=== PATIENT | male | born 1945 | race Caucasian/White ===

== ENCOUNTER → 2016-05-19 | Outpatient (CLI) | payer MEDICARE, OTHER ==
[~2016-05-19] MED LIST: AUGMENTIN 875-1 EACH PO; CENTRUM SILVER1 EAC2 PO; COREG 12.5MG12.5 MG PO; CRESTOR40 MG PO; HYDROCHLOROTHIA25 MG PO; IBUPROFEN800 MG PO; MOBIC15 MG PO; NASACORT16.9 ML; NITROSTAT0.4 MG SL; NORCO 7.5-3251 EACH PO; NORVASC 5 MG TAB5 MG PO; PLAVIX 75 MG TA75 MG PO; PROZAC40 MG PO; RANITIDINE HCL150 M1 PO; VITAMIN C 500500 MG PO
[2016-05-19 15:59] LABS: HEMOGLOBIN 13.2 gm/dl (14.0-17.5); RED BLOOD COUNT 4.28 M/UL (4.20-5.50); WHITE BLOOD COUNT 5.1 K/UL (4.5-11.0)
== END ==
LOC: LAB 15:37
PROVIDERS: Nurse Practitioner
DX: R23.8 Other skin changes (principal); Z79.01 Long term (current) use of anticoagulants
CPT/HCPCS: 85025; 85610

== ENCOUNTER → 2016-06-17 | Day surgery (SDC) | payer MEDICARE, OTHER ==
[~2016-06-17] VITALS: Ht 182.9 cm; Wt 111.1 kg
== END | disposition home or self-care (01) ==
LOC: OR 08:14
PROVIDERS: Internal Medicine Gastroenterology
PROC: 0DBH8ZX Excision of Cecum, Via Natural or Artificial Opening Endoscopic, Diagnostic (ICD-10-PCS; 2016-06-17)
PROC: 0DBP8ZZ Excision of Rectum, Via Natural or Artificial Opening Endoscopic (ICD-10-PCS; 2016-06-17)
PROC: 0DBL8ZZ Excision of Transverse Colon, Via Natural or Artificial Opening Endoscopic (ICD-10-PCS; principal; 2016-06-17 14:30)
DX: D12.0 Benign neoplasm of cecum (principal); K63.5 Polyp of colon; K62.1 Rectal polyp; K64.1 Second degree hemorrhoids; I10 Essential (primary) hypertension; R53.82 Chronic fatigue, unspecified; E11.9 Type 2 diabetes mellitus without complications; M19.90 Unspecified osteoarthritis, unspecified site; I25.10 Atherosclerotic heart disease of native coronary artery without angina pectoris; E66.9 Obesity, unspecified; Z87.19 Personal history of other diseases of the digestive system; Z88.8 Allergy status to other drugs, medicaments and biological substances; Z79.899 Other long term (current) drug therapy; Z90.49 Acquired absence of other specified parts of digestive tract; Z90.89 Acquired absence of other organs; Z86.010 Personal history of colon polyps
CPT/HCPCS: 82962; J7030

== ENCOUNTER → 2020-04-21 | Outpatient (CLI) | payer MEDICARE, OTHER ==
[~2020-04-21] MED LIST changes: +ALBUTEROL2.5 MG/3 M INH; +ALL DAY ALLERGY10 M2 PO; +AMIODARONE HCL200 MG PO; +AZITHROMYCIN250 MG PO; +BACTRIM 400-801 EACH PO; +BIOTIN1 MG PO; +BRILINTA 90 MG90 MG PO; +BRILINTA90 MG PO; +BUTALB-ACETAMI1 EACH PO; +CARVEDILOL12.5 MG PO; +CATAPRES 0.1MG0.1 MG PO; +CEFUROXIME500 MG PO; +CLONAZEPAM1 MG PO; +COREG25 MG PO; +COZAAR100 MG PO; +CYCLOBENZAPRINE10 MG PO; +DITROPAN XL10 MG PO; +DOXYCYCLINE HY100 M2 PO; +ECOTRIN81 MG PO; +ELIQUIS 5 MG TAB5 MG PO; +FINASTERIDE5 MG PO; +HYDRALAZINE HC100 MG PO; +IBU800 MG PO; +IMDUR ER TAB 3030 MG PO; +ISOSORBIDE MONO60 MG PO; +LEVOTHYROXINE25 MCG PO; +LOPRESSOR 50 MG50 MG PO; +LOSARTAN POTAS100 MG PO; +MEDROL DOSEPAK 24 MG PO; +MELATONIN3 MG PO; +MELOXICAM15 MG PO; +OMNICEF 300 MG300 MG PO; +PROTONIX 40 MG40 M1 PO; +TAMSULOSIN HCL0.4 MG PO; +TESSALON PERLE100 MG PO; +VENTOLIN HFA 66.7 GM INH; +ZETIA 10 MG TAB10 MG PO
== END ==
LOC: EXRD 11:30
DX: N50.811 Right testicular pain (principal); R93.813 Abnormal radiologic findings on diagnostic imaging of testicles, bilateral
CPT/HCPCS: 76870

== ENCOUNTER 2020-06-13 11:14 | Emergency (ER) | payer MEDICARE, OTHER ==
[~2020-06-13 11:14] MED LIST changes: -AMIODARONE HCL200 MG PO; -BACTRIM 400-801 EACH PO; -CARVEDILOL12.5 MG PO; -CEFUROXIME500 MG PO; -ELIQUIS 5 MG TAB5 MG PO; -FINASTERIDE5 MG PO; -IBU800 MG PO; -ISOSORBIDE MONO60 MG PO; -LEVOTHYROXINE25 MCG PO; -LOPRESSOR 50 MG50 MG PO; -PROTONIX 40 MG40 M1 PO; -TAMSULOSIN HCL0.4 MG PO
[2020-06-13 11:41] LABS: HEMOGLOBIN 11.6 gm/dl (14.0-17.5); RED BLOOD COUNT 3.88 M/UL (4.20-5.50); WHITE BLOOD COUNT 8.5 K/UL (4.5-11.0)
[2020-06-13 12:03] LABS: BUN/CREATININE RATIO 18 (0-10)
== END 2020-06-13 20:13 | disposition home or self-care (01) ==
LOC: ER1 11:14
PROVIDERS: Family Medicine; Physician Assistant
DX: R07.9 Chest pain, unspecified (principal); M54.2 Cervicalgia; M25.512 Pain in left shoulder
CPT/HCPCS: 71045; 80048; 80053; 82550; 82553; 82565; 83874; 84484; 85025; 85610; 93005; 96374; 96376; 99284; J2270; J7030; Q9967

== ENCOUNTER → 2020-06-24 | Outpatient (CLI) | payer MEDICARE, OTHER ==
[~2020-06-24] MED LIST changes: +AMIODARONE HCL200 MG PO; +BACTRIM 400-801 EACH PO; +CARVEDILOL12.5 MG PO; +CEFUROXIME500 MG PO; +ELIQUIS 5 MG TAB5 MG PO; +FINASTERIDE5 MG PO; +IBU800 MG PO; +ISOSORBIDE MONO60 MG PO; +LEVOTHYROXINE25 MCG PO; +LOPRESSOR 50 MG50 MG PO; +PROTONIX 40 MG40 M1 PO; +TAMSULOSIN HCL0.4 MG PO
== END ==
LOC: RAD 14:59
DX: M54.2 Cervicalgia (principal); M47.812 Spondylosis without myelopathy or radiculopathy, cervical region
CPT/HCPCS: 72040

== ENCOUNTER 2020-07-17 17:20 | Inpatient (IN) | payer MEDICARE, OTHER ==
[~2020-07-17] VITALS: Ht 182.9 cm; Wt 113.7 kg
[~2020-07-17 17:20] MED LIST changes: -AMIODARONE HCL200 MG PO; -BACTRIM 400-801 EACH PO; -CARVEDILOL12.5 MG PO; -CEFUROXIME500 MG PO; -ELIQUIS 5 MG TAB5 MG PO; -FINASTERIDE5 MG PO; -IBU800 MG PO; -ISOSORBIDE MONO60 MG PO; -LEVOTHYROXINE25 MCG PO; -LOPRESSOR 50 MG50 MG PO; -PROTONIX 40 MG40 M1 PO; -TAMSULOSIN HCL0.4 MG PO
[2020-07-17 19:07] LABS: HEMOGLOBIN 9.1 gm/dl (14.0-17.5); RED BLOOD COUNT 3.06 M/UL (4.20-5.50); WHITE BLOOD COUNT 4.4 K/UL (4.5-11.0)
[2020-07-17 19:27] LABS: BUN/CREATININE RATIO 18 (0-10)
[2020-07-18] MEDS ORDERED: BACTRIM 400-801 EACH PO (00:32)
[2020-07-18] MEDS ORDERED: LEVOTHYROXINE25 MCG PO (00:35)
[2020-07-18 03:34] LABS: HEMOGLOBIN 8.8 gm/dl (14.0-17.5); RED BLOOD COUNT 2.93 M/UL (4.20-5.50); WHITE BLOOD COUNT 4.1 K/UL (4.5-11.0)
[2020-07-19 04:22] LABS: RED BLOOD COUNT 3.04 M/UL (4.20-5.50); WHITE BLOOD COUNT 4.9 K/UL (4.5-11.0)
[2020-07-20 03:45] LABS: BUN/CREATININE RATIO 18 (0-10)
[2020-07-21] MEDS ORDERED: PROTONIX 40 MG40 M1 PO (12:16)
[2020-07-21] MEDS ORDERED: CARVEDILOL12.5 MG PO (12:16)
[2020-07-21] MEDS ORDERED: CEFUROXIME500 MG PO (12:16)
--- NOTE | 2020-07-21 14:12 | NUR ---
STATED THAT AFTER REVIEWING RESULTS OF PATIENT'S LUNG SCAN, HE CAN BE DISCHARGED.
== END 2020-07-21 15:39 | disposition home or self-care (01) | DRG 682 ==
LOC: ER1 17:20 → CDU 21:05 → MED SURG 4 21:05
PROVIDERS: Internal Medicine; Physician Assistant; ADMIT Internal Medicine
PROC: B24BZZ4 Ultrasonography of Heart with Aorta, Transesophageal (ICD-10-PCS; principal; 2020-07-18)
DX: N17.9 Acute kidney failure, unspecified (principal); J18.9 Pneumonia, unspecified organism; E87.1 Hypo-osmolality and hyponatremia; D61.818 Other pancytopenia; I25.10 Atherosclerotic heart disease of native coronary artery without angina pectoris; Z20.822 Contact with and (suspected) exposure to COVID-19; I95.2 Hypotension due to drugs; I12.9 Hypertensive chronic kidney disease with stage 1 through stage 4 chronic kidney disease, or unspecified chronic kidney disease; N18.30 Chronic kidney disease, stage 3 unspecified; D63.1 Anemia in chronic kidney disease; G47.33 Obstructive sleep apnea (adult) (pediatric); E86.0 Dehydration; E78.5 Hyperlipidemia, unspecified; E11.22 Type 2 diabetes mellitus with diabetic chronic kidney disease; I45.10 Unspecified right bundle-branch block; D69.6 Thrombocytopenia, unspecified; T46.5X5A Adverse effect of other antihypertensive drugs, initial encounter; Z95.5 Presence of coronary angioplasty implant and graft; Z79.4 Long term (current) use of insulin; Z86.711 Personal history of pulmonary embolism; Z79.01 Long term (current) use of anticoagulants; Z90.49 Acquired absence of other specified parts of digestive tract; Z88.8 Allergy status to other drugs, medicaments and biological substances; Z88.6 Allergy status to analgesic agent; Z82.49 Family history of ischemic heart disease and other diseases of the circulatory system; Z83.3 Family history of diabetes mellitus
CPT/HCPCS: ECHO; 0240U; 36415; 71045; 71046; 78580; 80048; 80053; 81001; 82550; 82553; 82962; 83605; 83690; 83874; 83880; 84439; 84443; 84484; 85025; 85379; 85610; 85730; 87040; 93005; 93306; 96374; 96375; 99285; A9540; J0456; J0696; J1650; J7030

== ENCOUNTER → 2020-07-29 | Outpatient (CLI) | payer MEDICARE, OTHER ==
[~2020-07-29] MED LIST changes: +AMIODARONE HCL200 MG PO; +BACTRIM 400-801 EACH PO; +CARVEDILOL12.5 MG PO; +CEFUROXIME500 MG PO; +ELIQUIS 5 MG TAB5 MG PO; +FINASTERIDE5 MG PO; +IBU800 MG PO; +ISOSORBIDE MONO60 MG PO; +LEVOTHYROXINE25 MCG PO; +LOPRESSOR 50 MG50 MG PO; +PROTONIX 40 MG40 M1 PO; +TAMSULOSIN HCL0.4 MG PO
== END ==
LOC: HEART 5 12:21
DX: R06.02 Shortness of breath (principal); R23.8 Other skin changes; I10 Essential (primary) hypertension; M79.672 Pain in left foot; I20.9 Angina pectoris, unspecified; R07.89 Other chest pain
CPT/HCPCS: 94060

== ENCOUNTER → 2020-08-06 | Outpatient (CLI) | payer MEDICARE, OTHER | LOC: KOH-I 08:25 | DX: R29.818 Other symptoms and signs involving the nervous system (principal) | CPT/HCPCS: 70450 ==

== ENCOUNTER 2020-08-15 19:58 | Inpatient (IN) | payer MEDICARE, OTHER ==
[~2020-08-15] VITALS: Ht 182.9 cm; Wt 107.5 kg
[~2020-08-15 19:58] MED LIST changes: -AMIODARONE HCL200 MG PO; -ELIQUIS 5 MG TAB5 MG PO; -FINASTERIDE5 MG PO; -IBU800 MG PO; -ISOSORBIDE MONO60 MG PO; -LOPRESSOR 50 MG50 MG PO; -TAMSULOSIN HCL0.4 MG PO
[2020-08-15 20:50] LABS: HEMOGLOBIN 10.3 gm/dl (14.0-17.5); RED BLOOD COUNT 3.66 M/UL (4.20-5.50); WHITE BLOOD COUNT 7.6 K/UL (4.5-11.0)
[2020-08-15 21:04] LABS: BUN/CREATININE RATIO 17 (0-10)
[2020-08-16] MEDS ORDERED: ISOSORBIDE MONO60 MG PO (00:23)
[2020-08-16 05:22] LABS: HEMOGLOBIN 9.3 gm/dl (14.0-17.5); RED BLOOD COUNT 3.34 M/UL (4.20-5.50); WHITE BLOOD COUNT 6.2 K/UL (4.5-11.0)
[2020-08-16 05:42] LABS: BUN/CREATININE RATIO 17 (0-10)
[2020-08-16] MEDS ORDERED: FINASTERIDE5 MG PO (08:57)
[2020-08-16] MEDS ORDERED: TAMSULOSIN HCL0.4 MG PO (08:59)
[2020-08-16] MEDS ORDERED: IBU800 MG PO (09:00)
[2020-08-16] MEDS ORDERED: HYDROCHLOROTHIA25 MG PO (09:01)
[2020-08-17 02:22] LABS: HEMOGLOBIN 9.6 gm/dl (14.0-17.5); RED BLOOD COUNT 3.44 M/UL (4.20-5.50); WHITE BLOOD COUNT 6.4 K/UL (4.5-11.0)
[2020-08-17 02:41] LABS: BUN/CREATININE RATIO 17 (0-10)
[2020-08-18 05:48] LABS: HEMOGLOBIN 10.1 gm/dl (14.0-17.5); RED BLOOD COUNT 3.64 M/UL (4.20-5.50); WHITE BLOOD COUNT 5.2 K/UL (4.5-11.0)
[2020-08-18 06:16] LABS: BUN/CREATININE RATIO 16 (0-10)
[2020-08-18] MEDS ORDERED: ELIQUIS 5 MG TAB5 MG PO (11:50)
[2020-08-18] MEDS ORDERED: LOPRESSOR 50 MG50 MG PO (11:50)
[2020-08-18] MEDS ORDERED: AMIODARONE HCL200 MG PO (11:50)
[2020-08-18] MEDS ORDERED: BRILINTA 90 MG90 MG PO (11:50)
[2020-08-18] MEDS ORDERED: HYDROCHLOROTHIA25 MG PO (11:54)
== END 2020-08-18 15:53 | disposition home or self-care (01) | DRG 282 ==
LOC: ER1 19:58 → CDU 22:20 → PROG CARE 22:20
PROVIDERS: Family Medicine; Internal Medicine; ADMIT Internal Medicine
PROC: B24BZZZ Ultrasonography of Heart with Aorta (ICD-10-PCS; principal; 2020-08-16)
DX: I48.91 Unspecified atrial fibrillation (principal); I21.A1 Myocardial infarction type 2; I25.10 Atherosclerotic heart disease of native coronary artery without angina pectoris; E11.9 Type 2 diabetes mellitus without complications; E78.5 Hyperlipidemia, unspecified; Z20.822 Contact with and (suspected) exposure to COVID-19; I07.1 Rheumatic tricuspid insufficiency; D53.9 Nutritional anemia, unspecified; I10 Essential (primary) hypertension; K22.70 Barrett's esophagus without dysplasia; Z96.653 Presence of artificial knee joint, bilateral; Z90.49 Acquired absence of other specified parts of digestive tract; Z90.89 Acquired absence of other organs; Z98.890 Other specified postprocedural states; Z82.49 Family history of ischemic heart disease and other diseases of the circulatory system; Z95.5 Presence of coronary angioplasty implant and graft; Z86.711 Personal history of pulmonary embolism; Z83.3 Family history of diabetes mellitus; Z87.891 Personal history of nicotine dependence; Z88.5 Allergy status to narcotic agent; Z88.8 Allergy status to other drugs, medicaments and biological substances; Z79.01 Long term (current) use of anticoagulants; Z79.899 Other long term (current) drug therapy
CPT/HCPCS: ECHO; 36415; 71045; 80048; 80053; 82550; 82553; 83874; 83880; 84484; 85025; 85379; 85730; 93005; 93306; 96374; 96375; 99285; G0378; J1644; J2270; J2405; Q9967; U0002

== ENCOUNTER 2020-08-25 12:09 | Observation (INO) | payer MEDICARE, OTHER ==
[~2020-08-25] VITALS: Ht 182.9 cm; Wt 107.5 kg
[~2020-08-25 12:09] MED LIST changes: +AMIODARONE HCL200 MG PO; +ELIQUIS 5 MG TAB5 MG PO; +FINASTERIDE5 MG PO; +IBU800 MG PO; +ISOSORBIDE MONO60 MG PO; +LOPRESSOR 50 MG50 MG PO; +TAMSULOSIN HCL0.4 MG PO
[2020-08-25 13:25] LABS: HEMOGLOBIN 10.8 gm/dl (14.0-17.5); RED BLOOD COUNT 3.85 M/UL (4.20-5.50); WHITE BLOOD COUNT 4.6 K/UL (4.5-11.0)
[2020-08-25 14:01] LABS: BUN/CREATININE RATIO 21 (0-10)
[2020-08-26 04:29] LABS: HEMOGLOBIN 10.4 gm/dl (14.0-17.5); RED BLOOD COUNT 3.69 M/UL (4.20-5.50)
[2020-08-26 04:55] LABS: BUN/CREATININE RATIO 18 (0-10)
[2020-08-26] MEDS ORDERED: FINASTERIDE5 MG PO (17:10)
[2020-08-26] MEDS ORDERED: TAMSULOSIN HCL0.4 MG PO (17:14)
--- NOTE | 2020-08-26 18:19 | NUR ---
GAVE IMDUR TO PATIENT AND WAITED 30 MIN'S AND BLOOD PRESSURE STILL 187/80 DR. CESAR SAID IT WAS OK TO GO AHEAD AND DC. PATIENT AND FAMILY SAID THEY WERE OK WITH BEING DISCHARGED AND DID NOT WANT TO STAY OVERNIGHT.
== END 2020-08-26 18:36 | disposition home or self-care (01) ==
LOC: ER1 12:09 → MED SURG 4 18:22 → CDU 18:22 → MED SURG 4 18:22
PROVIDERS: Family Medicine; Physician Assistant; ADMIT Internal Medicine
DX: I95.1 Orthostatic hypotension (principal); I48.0 Paroxysmal atrial fibrillation; E87.1 Hypo-osmolality and hyponatremia; E11.9 Type 2 diabetes mellitus without complications; I10 Essential (primary) hypertension; D64.9 Anemia, unspecified; E03.9 Hypothyroidism, unspecified; N40.0 Benign prostatic hyperplasia without lower urinary tract symptoms; I25.10 Atherosclerotic heart disease of native coronary artery without angina pectoris; E78.5 Hyperlipidemia, unspecified; K22.70 Barrett's esophagus without dysplasia; I45.10 Unspecified right bundle-branch block; I65.23 Occlusion and stenosis of bilateral carotid arteries; I25.2 Old myocardial infarction; Z20.822 Contact with and (suspected) exposure to COVID-19; Z86.711 Personal history of pulmonary embolism; Z87.891 Personal history of nicotine dependence; Z88.8 Allergy status to other drugs, medicaments and biological substances
CPT/HCPCS: 36415; 70450; 71045; 80048; 80053; 81001; 82550; 82553; 82962; 83605; 83735; 83874; 83880; 84439; 84443; 84484; 85025; 93005; 93880; 99285; G0378; J7030; U0002

== ENCOUNTER → 2020-11-27 | Outpatient (CLI) | payer MEDICARE, OTHER | LOC: KOH-I 13:13 | DX: M79.671 Pain in right foot (principal) | CPT/HCPCS: 73630 ==

== ENCOUNTER → 2020-12-25 | Outpatient (CLI) | payer MEDICARE, OTHER | LOC: KOH-I 14:30 | DX: M79.671 Pain in right foot (principal); R93.6 Abnormal findings on diagnostic imaging of limbs | CPT/HCPCS: 73630 ==

== ENCOUNTER → 2021-01-15 | Outpatient (CLI) | payer MEDICARE, OTHER | LOC: KOH-I 14:01 | DX: M79.671 Pain in right foot (principal) | CPT/HCPCS: 73630 ==

== ENCOUNTER 2021-02-23 17:02 | Emergency (ER) | payer MEDICARE, OTHER ==
[~2021-02-23 17:02] MED LIST changes: -CLONAZEPAM1 MG PO; -MELATONIN3 MG PO; -NASACORT16.9 ML
[2021-03-02] MEDS ORDERED: NASACORT16.9 ML (09:13)
[2021-03-02] MEDS ORDERED: TAMSULOSIN HCL0.4 MG PO (17:10)
[2021-03-02] MEDS ORDERED: FINASTERIDE5 MG PO (17:11)
[2021-03-02] MEDS ORDERED: LISINOPRIL5 MG PO (17:14)
[2021-03-02] MEDS ORDERED: IBU800 MG PO (17:15)
[2021-03-02] MEDS ORDERED: AMLODIPINE BESY10 MG PO (17:15)
[2021-03-02] MEDS ORDERED: ISOSORBIDE MONO60 MG PO (17:15)
[2021-03-02] MEDS ORDERED: GEMTESA75 MG PO (17:16)
[2021-03-02] MEDS ORDERED: ACIDOPHILUS1 EACH PO (17:16)
[2021-03-02] MEDS ORDERED: CRESTOR40 MG PO (18:29)
[2021-03-02] MEDS ORDERED: CLONAZEPAM1 MG PO (18:30)
[2021-03-02] MEDS ORDERED: MELATONIN5 M2 PO (18:30)
[2021-03-04] MEDS ORDERED: LISINOPRIL10 MG PO (09:47)
== END 2021-02-23 17:45 | disposition left against medical advice (07) ==
LOC: ER1 17:02
DX: Z53.21 Procedure and treatment not carried out due to patient leaving prior to being seen by health care provider (principal)

== ENCOUNTER → 2021-06-23 | Day surgery (SDC) | payer MEDICARE, OTHER ==
[~2021-06-23] VITALS: Ht 182.9 cm; Wt 124.7 kg
[~2021-06-23] MED LIST changes: +ACIDOPHILUS1 EACH PO; +AMLODIPINE BESY10 MG PO; +CLONAZEPAM1 MG PO; +CLONIDINE HCL0.2 MG PO; +GEMTESA75 MG PO; +LISINOPRIL10 MG PO; +LISINOPRIL5 MG PO; +MELATONIN5 M2 PO; +MYRBETRIQ50 MG PO; +NASACORT16.9 ML
== END | disposition home or self-care (01) ==
LOC: OR 06:55
DX: Z12.11 Encounter for screening for malignant neoplasm of colon (principal); D12.2 Benign neoplasm of ascending colon; D12.0 Benign neoplasm of cecum; D12.3 Benign neoplasm of transverse colon; D12.8 Benign neoplasm of rectum; Z86.010 Personal history of colon polyps; K64.1 Second degree hemorrhoids; K44.9 Diaphragmatic hernia without obstruction or gangrene; K21.9 Gastro-esophageal reflux disease without esophagitis; I12.9 Hypertensive chronic kidney disease with stage 1 through stage 4 chronic kidney disease, or unspecified chronic kidney disease; E11.22 Type 2 diabetes mellitus with diabetic chronic kidney disease; N18.9 Chronic kidney disease, unspecified; E78.5 Hyperlipidemia, unspecified; I48.91 Unspecified atrial fibrillation; G47.30 Sleep apnea, unspecified; I25.10 Atherosclerotic heart disease of native coronary artery without angina pectoris; E66.8 Other obesity; Z68.36 Body mass index [BMI] 36.0-36.9, adult; Z99.89 Dependence on other enabling machines and devices; Z88.8 Allergy status to other drugs, medicaments and biological substances; Z79.01 Long term (current) use of anticoagulants; Z79.899 Other long term (current) drug therapy
CPT/HCPCS: 82962; J2001; J2704

== ENCOUNTER → 2021-07-14 | Outpatient (CLI) | payer MEDICARE, OTHER | LOC: RAD 16:00 | DX: M47.26 Other spondylosis with radiculopathy, lumbar region (principal); M54.50 Low back pain, unspecified | CPT/HCPCS: 72120; 73502 ==

== ENCOUNTER 2021-10-17 06:24 | Emergency (ER) | payer MEDICARE, OTHER ==
[2021-10-17] MEDS ORDERED: CODEINE SULFATE30 M1 PO (09:19)
[2021-10-17] MEDS ORDERED: HYDROCODON-ACE1 EAC4 PO (12:54)
== END 2021-10-17 09:44 | disposition home or self-care (01) ==
LOC: ER1 06:24
DX: S01.112A Laceration without foreign body of left eyelid and periocular area, initial encounter (principal); S13.9XXA Sprain of joints and ligaments of unspecified parts of neck, initial encounter; H11.32 Conjunctival hemorrhage, left eye; W01.10XA Fall on same level from slipping, tripping and stumbling with subsequent striking against unspecified object, initial encounter
CPT/HCPCS: 12011; 70450; 71045; 72125; 93005; 99284